=== PATIENT | male | born 2000 | race Caucasian/White ===

== ENCOUNTER 2024-01-02 21:59 | Emergency (ER) | payer OTHER, SELFPAY ==
[2024-01-02 22:00] VITALS: BP 149/80
[2024-01-02] MEDS: TORADOL 30 MG IM (22:35)
[2024-01-02] MEDS: TYLENOL 1000 MG PO (22:35)
[2024-01-02 22:41] VITALS: BMI 26.9
--- NOTE | 2024-01-02 22:57 | ED.GENMED ---
History of Present Illness
General
Chief Complaint: Musculo-Skeletal Complaint
Time Seen by Provider: 01/02/24 22:16
History of Present Illness
History of Present Illness:
23-year-old male presents to the emergency department for evaluation of left shoulder and upper back pain after falling while playing football with friends, he tripped and landed directly on adducted left shoulder and slid across concrete. Denies
any head injury. He is unable to move the shoulder secondary to pain
Past History
Social History
Tobacco: Non-smoker
Alcohol: None
Review of Systems
Review of Systems
Allergies reviewed?: Yes
All Other Systems: ROS reviewed and negative except as documented in HPI and ROS
Phy Exam
Physical Exam
Physical Exam:
GEN: Well appearing, NAD, WDWN
HEENT: Oral mucosa moist, no scleral icterus
Cardiac: Regular rate
Lung: No respiratory distress, no tachypnea
MSK: Severe swelling of the left shoulder with no obvious sulcus or deformity. Range of motion essentially unable to be assessed due to pain. Large abrasion to the left proximal lateral forearm. Abrasions to the superior shoulder as well
Skin: Good color, no pallor or jaundice, no rashes
Neuro: AO x3, moves all extremities freely
Psych: Calm, cooperative
Course
Orders/Labs/Results
Orders:
Orders
01/02/24 22:06
CR Shoulder - Left Min 2 View* Urgent
Comment:
Reason For Exam: pain, decreased ROM
01/02/24 22:26
Acetaminophen [Tylenol] 1,000 mg PO NOW STA
Ketorolac [Toradol] 30 mg IM NOW STA
01/03/24 00:06
CT Chest W/o Iv Contrast Urgent
Reason For Exam: L scapula fx
01/03/24 00:14
HYDROmorphone [Dilaudid] 1 mg IM NOW STA
01/03/24 00:15
HYDROmorphone [Dilaudid] 1 mg .ROUTE .STK-MED ONE
Vital Signs
Initial and Last Documented VS:
Initial Vital Signs
Temp Pulse Resp BP Pulse Ox
98.4 F 74 18 149/80 100
01/02/24 22:00 01/02/24 22:00 01/02/24 22:00 01/02/24 22:00 01/02/24 22:00
Last Documented Vital Signs
Temp Pulse Resp BP Pulse Ox
98.4 F 87 20 133/63 96
01/02/24 22:00 01/03/24 00:22 01/03/24 00:22 01/03/24 00:22 01/03/24 00:22
MDM/Problems Addressed
MDM/Problems Addressed:
Additional x-rays independently interpreted by myself show a comminuted scapular fracture with no evidence for glenohumeral joint disruption. A follow-up CT of the chest was obtained for further assessment of occult injury given that scapular
fractures typically require high velocity trauma, this fortunately ruled out pneumothorax, rib fracture, or additional injuries. Patient will follow-up with orthopedics as an outpatient, placed in a sling until follow-up
*Critical Care Note
Total Time (30-74mins, 75-104mins- exclusive of procedures): Not Applicable
ED Attending Note
-
Portions of this chart may have been created with voice recognition software.� Occasional wrong word or��sound alike� substitutions may have occurred due to the inherent limitations of voice recognition software.
Discharge Plan
Departure
Patient Disposition: Home (Routine Discharge)
Date of Disposition: 01/03/24
Time of Disposition: 00:52
Patient with high blood pressure during this ER visit?: No
Discharge Problem:
Closed fracture of left scapula
Instructions: Shoulder Blade Fracture (DC)
Prescriptions:
New
oxycodone 5 mg tablet
5 mg PO TID PRN (Reason: Pain) Qty: 12 0RF
No Action
Mucinex :
1 tab PO PRN PRN (Reason: congestion)
albuterol sulfate 1 PUFF HFA aerosol inhaler
2 puff inhalation R [id number] PRN (Reason: cough)
prednisone 10 MG tablet
10 mg PO .TAPER Qty: 30 0RF
Rx Instructions:
Take 40mg daily x3days, 30mg daily x3days, 20mg daily x3days, 10mg daily x3days.
Referrals:
NONE,* [Family Provider] -
Alfred Rodriguez MD [Active] -
Activity Restrictions/Additional Instructions:
Wear the sling at all times, however you should remove for 1 hour per day to stretch the elbow
Take Tylenol and Ibuprofen as well as the prescribed pain medicine
Follow up with Orthopedics in 7-10 days
Interventions
Interventions:
*Risk Screen - Suicide Last Done: 01/02/24 22:00
*General Assessment Last Done: 01/02/24 22:00
*Neglect/Abuse Screening Last Done: 01/02/24 22:00
ED- Fall Risk Assessment Last Done: 01/02/24 22:46
*ED COVID-19 Vaccine History Last Done: 01/02/24 22:00
ED-Musculoskeletal Assessment Last Done: 01/02/24 22:46
Discharge Date and Time
Print Language: PORTUGUESE
[2024-01-03 00:22] VITALS: BP 133/63
[2024-01-03 00:30] VITALS: BP 130/90
== END 2024-01-03 00:52 | disposition home or self-care (01) ==
LOC: EMR 21:59
PROVIDERS: EMERGENCY PHYSICIAN Emergency Medicine
DX: S42.102A Fracture of unspecified part of scapula, left shoulder, initial encounter for closed fracture (principal); W01.0XXA Fall on same level from slipping, tripping and stumbling without subsequent striking against object, initial encounter; Y93.61 Activity, american tackle football; M25.512 Pain in left shoulder; M54.6 Pain in thoracic spine
CPT/HCPCS: 99284; 96372; 71250; 73030